=== PATIENT | male | born 1980 | race African-American/Black ===

== ENCOUNTER 2020-09-06 23:35 | Emergency (ER) | payer MEDICAID ==
[~2020-09-06] VITALS: Ht 182.9 cm; Wt 113.0 kg
[2020-09-06 23:43] VITALS: BP 180/86
== END 2020-09-07 03:54 | disposition home or self-care (01) ==
LOC: ER 23:35
DX: G93.40 Encephalopathy, unspecified (principal); F10.129 Alcohol abuse with intoxication, unspecified; E11.9 Type 2 diabetes mellitus without complications; I10 Essential (primary) hypertension; Y90.9 Presence of alcohol in blood, level not specified
CPT/HCPCS: 93005; 99283